=== PATIENT | male | born 1955 | race Caucasian/White ===

== ENCOUNTER → 2021-12-04 | Outpatient (CLI) | payer MEDICARE, OTHER ==
--- NOTE | 2021-12-04 08:58 | RAD ---
EXAM: ULTRASOUND ABDOMINAL AORTA. HISTORY: Abdominal aortic aneurysm screening. Hypertension. Cigarette smoking. COMPARISON: None. FINDINGS: Sonographic evaluation of the abdominal aorta and common iliac arteries was performed. Ther e is calcified atherosclerotic plaque involving the aorta and iliac bifurcation. Proximally, the abdominal aorta measures 3.0 cm. In its midportion, 2.4 cm. Distally, 1.8 cm. The right common iliac artery measures 1.3 cm. The left measures 1.3 cm. There is no evidence of stenosis on Doppler. IMPRESSION: No evidence of abdominal aortic aneurysm. Electronically signed by: Olga Daly MD (12/04/2021 8:56 AM) [id number]
== END ==
LOC: US 07:47
PROVIDERS: ATTEND Family Medicine
DX: Z13.6 Encounter for screening for cardiovascular disorders (principal); I70.0 Atherosclerosis of aorta; I10 Essential (primary) hypertension; Z87.891 Personal history of nicotine dependence
CPT/HCPCS: 76770